=== PATIENT | female | born 1935 | race Caucasian/White ===

== ENCOUNTER 2021-08-16 17:34 | Emergency (ER) | payer MEDICARE, BC ==
[2021-08-16] MEDS ORDERED: Fluorescein 1 MG Ophth Strip EYEBOTH ONE (18:24)
[2021-08-16] MEDS ORDERED: Proparacaine 0.5% Ophth Soln 15 ML Bottle EYEBOTH ONE (18:24)
--- NOTE | 2021-08-16 18:27 | EDM.PDOC ---
ED HPI GENERAL MEDICAL PROBLEM - General Chief Complaint: Eye Problems Stated Complaint: WRONG MEDICINE IN EYES Time Seen by Provider: 08/16/21 18:10 Source of Information: Reports: Patient History Limitations: Reports: No Limitations - History of Present Illness INITIAL COMMENTS - FREE TEXT/NARRATIVE: 85-year-old female presents the emergency department today after putting the wrong medication in her eyes at about 6 AM this morning. Patient states that she was supposed to put Towner eyedrops in her eyes when she accidentally put psoriasis cream in her eyes. She states that she did wash her eyes out well this morning and then this evening used an eyewash cream as she states that they began burning more this evening. She states that they did call poison control and directed her to come to the emergency department as the medication could scratch the cornea. Patient also requesting prednisone for psoriasis exacerbation. - Related Data Allergies Allergy/AdvReac Type Severity Reaction Status Date / Time No Known Allergies Allergy Verified 08/16/21 18:16 Home Meds: Home Meds Omeprazole 20 mg PO ASDIRECTED 08/16/21 [History] Potassium Chloride 10 meq PO DAILY 08/16/21 [History] Pravastatin [Pravachol] 5 mg PO DAILY 08/16/21 [History] predniSONE [Prednisone] 20 mg PO ASDIRECTED #15 tablet 08/16/21 [Rx] ED ROS GENERAL - Review of Systems Review Of Systems: Comprehensive ROS is negative, except as noted in HPI. ED EXAM GENERAL W FULL EYE - Physical Exam Exam: See Below Exam Limited By: No Limitations General Appearance: Alert, WD/WN, No Apparent Distress Eye Exam: Bilateral Eye: EOMI, PERRL Eyelids: Bilateral: Normal Appearance Conjunctiva & Sclera: Bilateral: Normal Appearance Cornea Exam: Bilateral: Normal Appearance, Examined with Flourescein Extraocular Movements: Bilateral: Intact Pupils: Normal Accommodation Pupillary Size: Bilateral: 3 mm Pupillary Reaction: Bilateral: Brisk Ears: Normal External Exam, Hearing Grossly Normal Nose: Normal Inspection Throat/Mouth: Normal Inspection, Normal Lips, Normal Voice, No Airway Compromise Head: Atraumatic, Normocephalic Neck: Normal Inspection, Supple Respiratory/Chest: No Respiratory Distress, No Accessory Muscle Use Cardiovascular: Normal Peripheral Pulses, Regular Rate, Rhythm GI/Abdominal: No Distention (Male) Exam: Deferred (Female) Exam: Deferred Rectal (Males) Exam: Deferred Rectal (Female) Exam: Deferred Back Exam: Other (Patient does have scattered areas of psoriasis noted however entire back) Extremities: Other (Areas of psoriasis noted to bilateral upper inner arms.) Neurological: Alert, Oriented, Normal Cognition Psychiatric: Normal Affect, Normal Mood Skin Exam: Warm, Dry, Intact, Normal Color, Rash (Psoriasis noted to abdomen, back and bilateral upper inner arms) Lymphatic: No Adenopathy Course - Vital Signs Text/Narrative:: As stated above, patient presents with burning noted to her eyes bilaterally due to the fact that she accidentally put psoriasis cream into her eyes this morning. Patient visual exam that was completed by nursing staff is 20/100 bilaterally. Patient does have macular degeneration. Exam was completed without the patient wearing her glasses. Exam that was completed by myself. I did use 1 drop of proparacaine in each eye and then applied fluorescein to her eyes bilaterally. Both eyes were inspected and I do not appreciate any corneal abrasion on either eye. She will be instructed to use eyewashes for comfort. 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 Last Recorded V/S: Last Vital Signs Temp 97.9 F 08/16/21 18:27 Pulse 83 08/16/21 18:27 Resp 20 08/16/21 18:27 BP 133/64 08/16/21 18:27 Pulse Ox 100 08/16/21 18:27 - Orders/Labs/Meds Meds: Medications Discontinued Medications Generic Name Dose Route Start Last Admin Trade Name Tuanq PRN Reason Stop Dose Admin Fluorescein Sodium 1 mg 08/16/21 18:24 08/16/21 18:37 Fluorescein 1 Mg Ophth Strip EYEBOTH 08/16/21 18:25 1 mg ONETIME ONE Administration Proparacaine HCl 1 ml 08/16/21 18:24 08/16/21 18:37 Proparacaine 0.5% Ophth Soln 15 Ml Bottle EYEBOTH 08/16/21 18:25 1 ml ONETIME ONE Administration Departure - Departure Time of Disposition: 18:58 Disposition: Home, Self-Care 01 Condition: Good Clinical Impression: Irritation of both eyes, Psoriasis (a type of skin inflammation) - Discharge Information Prescriptions: predniSONE [Prednisone] 20 mg PO ASDIRECTED #15 tablet Instructions: Psoriasis, [id number] Referrals: Evy Martin MD [Primary Care Provider] - Forms: ED Department Discharge Additional Instructions: You were seen in the emergency department this evening after accidentally placing psoriasis cream in your eyes this morning. Exam was completed and you do not appear to have an abrasion to your cornea. Recommend that if you are still having irritation first thing Thursday to follow-up with your preschool principal for reevaluation. I have sent prescription to [facility] in [place] for prednisone to treat your psoriasis. You will need to take 20 mg twice daily for 5 days and then 20 mg daily for another 5 days. Please be sure to follow-up with Dr. Martin in clinic once you have completed this course of prednisone treatment. Should your condition worsen or change, do not hesitate returning to the emergency department. Sepsis Event Note (ED) - Focused Exam Vital Signs: Vital Signs Temp Pulse Resp BP Pulse Ox 08/16/21 18:27 97.9 F 83 20 133/64 100
== END 2021-08-16 19:28 | disposition home or self-care (01) ==
LOC: JD.ED 17:34
DX: L40.9 Psoriasis, unspecified (principal); H57.89 Other specified disorders of eye and adnexa
CPT/HCPCS: 99282

== ENCOUNTER 2021-12-13 12:00 | Emergency (ER) | payer MEDICARE, BC ==
[2021-12-13] MEDS ORDERED: Morphine 4 MG/ML Syringe IVPUSH ONE ×2 (12:39→13:51)
== END 2021-12-13 18:16 ==
LOC: JD.ED 12:00
DX: S72.001A Fracture of unspecified part of neck of right femur, initial encounter for closed fracture (principal); Z79.899 Other long term (current) drug therapy; Z20.822 Contact with and (suspected) exposure to COVID-19; W06.XXXA Fall from bed, initial encounter
CPT/HCPCS: 36415; 73502; 80053; 85025; 85610; 96374; 96376; 99284; J2270; U0002

== ENCOUNTER 2023-03-07 19:53 | Emergency (ER) | payer MEDICARE, BC ==
[2023-03-07] MEDS ORDERED: predniSONE 20 MG Tab PO STA (21:07)
== END 2023-03-07 21:45 | disposition home or self-care (01) ==
LOC: JD.ED 19:53
DX: M10.9 Gout, unspecified (principal); J45.909 Unspecified asthma, uncomplicated; N18.9 Chronic kidney disease, unspecified
CPT/HCPCS: 99283; J7512

== ENCOUNTER 2024-01-15 16:38 | Emergency (ER) | payer MEDICARE, BC ==
[2024-01-15 21:11] LABS: BASOPHILS PERCENT AUTO 0.5 % (0.0-1.0); EOSINOPHILS ABSOLUTE AUTO 0.2 K/mm3 (0.0-0.4); HEMATOCRIT 33.1 % (37.0-47.0); HEMOGLOBIN 10.5 gm/dl (12.0-16.0); IMMATURE GRAN ABSOLUTE AUTO 0.02 K/mm3 (0.00-0.05); IMMATURE GRAN PERCENT AUTO 0.3 % (0.0-0.4); LYMPHOCYTES ABSOLUTE AUTO 1.4 K/mm3 (1.0-4.8); LYMPHOCYTES PERCENT AUTO 22.6 % (24.0-44.0); MEAN CORPUSCULAR HEMOGLOBIN 31.4 pg (28.0-32.0); MEAN CORPUSCULAR HGB CONC 31.7 g/dl (32.0-36.0); MEAN CORPUSCULAR VOLUME 99.1 fl (83.0-99.0); MEAN PLATELET VOLUME 9.5 fl (9.4-12.3); MONOCYTES ABSOLUTE AUTO 0.6 K/mm3 (0.0-0.8); MONOCYTES PERCENT AUTO 9.4 % (0.0-8.0); NEUTROPHILS ABSOLUTE AUTO 3.8 K/mm3 (1.8-7.7); NEUTROPHILS PERCENT AUTO 63.2 % (41.0-71.0); PLATELET COUNT,PLT 256 K/mm3 (150-400); RED BLOOD CELL COUNT 3.34 M/mm3 (4.10-5.30); WHITE BLOOD CELL COUNT,WBC 5.98 K/mm3 (3.9-11.3)
[2024-01-15 21:34] LABS: A/G RATIO 0.8 (1-2); ALBUMIN 3.2 g/dl (3.4-5.0); ANION GAP 14.4 (5-15); BILIRUBIN TOTAL 0.6 mg/dL (0.2-1.0); CREATININE 1.4 mg/dL (0.55-1.02); POTASSIUM,K 3.4 mEq/L (3.5-5.1); PROTEIN TOTAL,TP 7.2 g/dl (6.4-8.2); URIC ACID 6.1 mg/dL (2.6-6.0)
[2024-01-15] MEDS: Cephalexin 500 MG Cap PO ONE (23:12)
[2024-01-15] MEDS: Colchicine 0.6 MG Tab PO ONE ×2 (23:12→23:13)
== END 2024-01-15 23:20 | disposition home or self-care (01) ==
LOC: JD.ED 16:38
DX: L03.116 Cellulitis of left lower limb (principal); M10.00 Idiopathic gout, unspecified site; I48.91 Unspecified atrial fibrillation; J45.909 Unspecified asthma, uncomplicated; K21.9 Gastro-esophageal reflux disease without esophagitis; N18.9 Chronic kidney disease, unspecified; Z86.19 Personal history of other infectious and parasitic diseases; Z91.048 Other nonmedicinal substance allergy status
CPT/HCPCS: 36415; 73502-26-LT; 73502-26-RT; 73502-LT; 73502-RT; 73610-26-LT; 73610-LT; 80053; 84550; 85025; 85652; 93005; 93010; 93971-26-LT; 93971-LT; 99284; A9270-GY

== ENCOUNTER 2024-06-10 19:44 | Emergency (ER) | payer MEDICARE, BC ==
[2024-06-10 20:39] LABS: BASOPHILS PERCENT AUTO 0.4 % (0.0-1.0); EOSINOPHILS ABSOLUTE AUTO 0.2 K/mm3 (0.0-0.4); EOSINOPHILS PERCENT AUTO 3.3 % (0.0-6.0); HEMATOCRIT 30.1 % (37.0-47.0); HEMOGLOBIN 9.6 gm/dl (12.0-16.0); IMMATURE GRAN ABSOLUTE AUTO 0.02 K/mm3 (0.00-0.05); IMMATURE GRAN PERCENT AUTO 0.3 % (0.0-0.4); LYMPHOCYTES ABSOLUTE AUTO 1.4 K/mm3 (1.0-4.8); LYMPHOCYTES PERCENT AUTO 19.4 % (24.0-44.0); MEAN CORPUSCULAR HEMOGLOBIN 31.4 pg (28.0-32.0); MEAN CORPUSCULAR HGB CONC 31.9 g/dl (32.0-36.0); MEAN CORPUSCULAR VOLUME 98.4 fl (83.0-99.0); MEAN PLATELET VOLUME 9.6 fl (9.4-12.3); MONOCYTES ABSOLUTE AUTO 0.6 K/mm3 (0.0-0.8); MONOCYTES PERCENT AUTO 8.6 % (0.0-8.0); NEUTROPHILS ABSOLUTE AUTO 4.9 K/mm3 (1.8-7.7); PLATELET COUNT,PLT 230 K/mm3 (150-400); RED BLOOD CELL COUNT 3.06 M/mm3 (4.10-5.30); WHITE BLOOD CELL COUNT,WBC 7.23 K/mm3 (3.9-11.3)
[2024-06-10] MEDS: Sodium Chloride 0.9% 10 ML Syringe FLUSH PRN (20:42)
[2024-06-10] MEDS: Sodium Chloride 0.9% 500 ML IV ONE (20:42)
[2024-06-10 20:54] LABS: APPEARANCE,URINE CLEAR (Clear); BILIRUBIN,URINE NEGATIVE (Negative); COLOR,URINE YELLOW (Yellow); GLUCOSE,URINE NEGATIVE (Negative); KETONES,URINE NEGATIVE (Negative); LEUKOCYTE ESTERASE,URINE TRACE (Negative); NITRITE,URINE NEGATIVE (Negative); OCCULT BLOOD,URINE 2+ (Negative); PROTEIN,URINE 1+ (Negative); UROBILINOGEN,URINE 0.2 (0.2-1.0)
[2024-06-10 21:03] LABS: A/G RATIO 0.7 (1-2); ALBUMIN 2.9 g/dl (3.4-5.0); ANION GAP 18.1 (5-15); BILIRUBIN TOTAL 0.5 mg/dL (0.2-1.0); BUN/CREATININE RATIO 8.5 (14-18); CALCIUM 8.9 mg/dL (8.5-10.1); CREATININE 4.7 mg/dL (0.55-1.02); EST CRCL DRUG DOSING (CG) 8.04 mL/min; POTASSIUM,K 4.1 mEq/L (3.5-5.1); PROTEIN TOTAL,TP 7.1 g/dl (6.4-8.2)
[2024-06-10 21:11] LABS: BACTERIA,URINE FEW /hpf (FEW); MUCUS,URINE FEW /hpf (FEW)
[2024-06-10 21:25] LABS: INR 2.33; PROTHROMBIN TIME 23.4 SECONDS (9.7-12.0)
== END 2024-06-11 00:40 ==
LOC: JD.ED 19:44
DX: N19 Unspecified kidney failure (principal); D64.9 Anemia, unspecified; R82.90 Unspecified abnormal findings in urine; Z91.048 Other nonmedicinal substance allergy status; Z79.01 Long term (current) use of anticoagulants; Z79.899 Other long term (current) drug therapy; Z90.49 Acquired absence of other specified parts of digestive tract; Z90.710 Acquired absence of both cervix and uterus
CPT/HCPCS: 36415; 80053; 81001; 85025; 85610; 87086; 96360; 99284; J3490; J7030

== ENCOUNTER 2024-09-11 09:32 | Inpatient (IN) | payer MEDICARE, BC ==
[2024-09-11] MEDS ORDERED: Sodium Chloride 0.9% 10 ML Syringe FLUSH PRN (09:52)
[2024-09-11] MEDS: Diltiazem 25 MG/5 ML SDV IVPUSH ONE (10:02)
[2024-09-11] MEDS: Sodium Chloride 0.9% 1,000 ML IV ONE ×2 (10:03→13:47)
[2024-09-11] MEDS: Diltiazem 125 MG in Sodium Chloride 0.9% 100 ML IV SCH (10:24)
[2024-09-11 10:38] LABS: HEMATOCRIT 22.7 % (37.0-47.0); MEAN CORPUSCULAR HEMOGLOBIN 32.9 pg (28.0-32.0); MEAN CORPUSCULAR HGB CONC 31.3 g/dl (32.0-36.0); MEAN CORPUSCULAR VOLUME 105.1 fl (83.0-99.0); MEAN PLATELET VOLUME 10.6 fl (9.4-12.3); PLATELET COUNT,PLT 202 K/mm3 (150-400); RED BLOOD CELL COUNT 2.16 M/mm3 (4.10-5.30); WHITE BLOOD CELL COUNT,WBC 8.36 K/mm3 (3.9-11.3)
[2024-09-11 10:48] LABS: HEMOGLOBIN 7.1 gm/dl (12.0-16.0)
[2024-09-11 10:55] LABS: INR 2.03; PROTHROMBIN TIME 20.5 SECONDS (9.7-12.0)
[2024-09-11 11:00] LABS: LACTIC ACID 1.7 mmol/L (0.4-2.0)
[2024-09-11 11:01] LABS: A/G RATIO 0.6 (1-2); ALBUMIN 2.3 g/dl (3.4-5.0); ANION GAP 16.4 (5-15); BILIRUBIN TOTAL 0.6 mg/dL (0.2-1.0); BUN/CREATININE RATIO 13.7 (14-18); C-REACTIVE PROTEIN 13.86 mg/dL (<0.30); CALCIUM 7.8 mg/dL (8.5-10.1); CREATININE 3.8 mg/dL (0.55-1.02); EST CRCL DRUG DOSING (CG) 10.14 mL/min; POTASSIUM,K 3.4 mEq/L (3.5-5.1); PROTEIN TOTAL,TP 5.9 g/dl (6.4-8.2)
[2024-09-11 11:26] LABS: APPEARANCE,URINE CLEAR (Clear); BILIRUBIN,URINE NEGATIVE (Negative); COLOR,URINE YELLOW (Yellow); GLUCOSE,URINE NEGATIVE (Negative); KETONES,URINE NEGATIVE (Negative); LEUKOCYTE ESTERASE,URINE NEGATIVE (Negative); NITRITE,URINE NEGATIVE (Negative); OCCULT BLOOD,URINE NEGATIVE (Negative); PROTEIN,URINE 3+ (Negative); UROBILINOGEN,URINE 0.2 (0.2-1.0)
[2024-09-11 11:30] LABS: BAND PERCENT MAN 1 % (0-10); BASOPHILS PERCENT MAN 0 (0.1-1.2); EOSINOPHILS PERCENT MAN 3 % (0.7-5.8); LYMPHOCYTES % ATYPICAL MANUAL 0 %; LYMPHOCYTES PERCENT MAN 7 % (20-40); MONOCYTES PERCENT MAN 3 % (2-10)
[2024-09-11 11:33] LABS: ANISOCYTOSIS 2+ MODERATE; HYPOCHROMASIA 1+ SLIGHT; PLATELET COUNT ESTIMATE ADEQUATE; SPHEROCYTES 1+ SLIGHT
[2024-09-11 11:57] LABS: AMORPHOUS SEDIMENT,URINE FEW /hpf (NOT SEEN); BACTERIA,URINE MODERATE /hpf (FEW); MUCUS,URINE FEW /hpf (FEW); RBC,URINE 0-5 /hpf (0-5); SQUAMOUS EPITHELIAL CELLS,UR 0-5 /hpf (0-5); WBC,URINE 0-5 /hpf (0-5)
[2024-09-11] MEDS ORDERED: cefTRIAXone 500 MG Vial IVPUSH ONE (13:30)
[2024-09-11] MEDS: cefTRIAXone 1 GM Vial IVPUSH ONE (13:51)
[2024-09-11] MEDS ORDERED: oxyCODONE 5 MG Tab PO PRN (17:45)
[2024-09-11] MEDS ORDERED: Naloxone 0.4 MG/ML SDV IVPUSH PRN (17:45)
[2024-09-11] MEDS ORDERED: LORazepam 2 MG/ML SDV IV PRN (17:45)
[2024-09-11] MEDS ORDERED: Morphine 2 MG/ML SYRINGE IVPUSH PRN (17:45)
[2024-09-11] MEDS ORDERED: Acetaminophen 325 MG Tab PO PRN (17:45)
[2024-09-11] MEDS: Potassium Chloride 20 MEQ Tab.ER PO ONE (18:34)
[2024-09-11] MEDS: Melatonin 3 MG Tab PO PRN (20:11)
[2024-09-11] MEDS: Fluticasone NASAL Spray 16 GM Bottle NAS SCH (20:11)
[2024-09-11] MEDS: Famotidine 20 MG/2 ML SDV IVPUSH SCH (20:11)
[2024-09-11] MEDS: Sodium Bicarbonate 650 MG Tab PO SCH (20:11)
[2024-09-11] MEDS: Warfarin 2.5 MG Tab PO ONE (20:11)
[2024-09-11] MEDS: Metoprolol Tartrate 25 MG Tab PO SCH (23:14)
[2024-09-12] MEDS: Sodium Chloride 0.9% 500 ML IV ONE (03:50)
[2024-09-12 05:58] LABS: BASOPHILS PERCENT AUTO 0.2 % (0.0-1.0); EOSINOPHILS ABSOLUTE AUTO 0.3 K/mm3 (0.0-0.4); EOSINOPHILS PERCENT AUTO 5.2 % (0.0-6.0); HEMATOCRIT 29.6 % (37.0-47.0); IMMATURE GRAN ABSOLUTE AUTO 0.04 K/mm3 (0.00-0.05); IMMATURE GRAN PERCENT AUTO 0.8 % (0.0-0.4); LYMPHOCYTES ABSOLUTE AUTO 0.3 K/mm3 (1.0-4.8); LYMPHOCYTES PERCENT AUTO 6.5 % (24.0-44.0); MEAN CORPUSCULAR HEMOGLOBIN 32.4 pg (28.0-32.0); MEAN CORPUSCULAR HGB CONC 31.4 g/dl (32.0-36.0); MEAN CORPUSCULAR VOLUME 103.1 fl (83.0-99.0); MEAN PLATELET VOLUME 11.2 fl (9.4-12.3); MONOCYTES ABSOLUTE AUTO 0.3 K/mm3 (0.0-0.8); MONOCYTES PERCENT AUTO 5.5 % (0.0-8.0); NEUTROPHILS ABSOLUTE AUTO 4.3 K/mm3 (1.8-7.7); NEUTROPHILS PERCENT AUTO 81.8 % (41.0-71.0); PLATELET COUNT,PLT 149 K/mm3 (150-400); RED BLOOD CELL COUNT 2.87 M/mm3 (4.10-5.30); WHITE BLOOD CELL COUNT,WBC 5.23 K/mm3 (3.9-11.3)
[2024-09-12 06:08] LABS: HEMOGLOBIN 9.3 gm/dl (12.0-16.0)
[2024-09-12 06:19] LABS: INR 1.89; PROTHROMBIN TIME 19.2 SECONDS (9.7-12.0)
[2024-09-12 07:00] LABS: A/G RATIO 0.6 (1-2); ANION GAP 14.8 (5-15); BILIRUBIN TOTAL 0.6 mg/dL (0.2-1.0); BUN/CREATININE RATIO 13.8 (14-18); CALCIUM 7.7 mg/dL (8.5-10.1); CREATININE 3.7 mg/dL (0.55-1.02); EST CRCL DRUG DOSING (CG) 10.81 mL/min; MAGNESIUM 1.9 mg/dL (1.8-2.4); PHOSPHORUS 2.9 mg/dL (2.6-4.7); POTASSIUM,K 3.8 mEq/L (3.5-5.1); PROTEIN TOTAL,TP 5.3 g/dl (6.4-8.2)
[2024-09-12] MEDS ORDERED: Fluticasone/Umeclidin/Vilanter [Trelegy Ellipta 100-62.5- PO SCH (09:00)
[2024-09-12] MEDS: Sennosides/Docusate Sodium 50-8.6 MG Tab PO PRN (09:05)
[2024-09-12] MEDS: Warfarin 2.5 MG Tab PO ONE (17:16)
[2024-09-12] MEDS: Warfarin 5 MG Tab PO SCH (17:34)
== END 2024-09-12 18:13 | disposition home or self-care (01) | DRG 309 ==
LOC: JD.ED 09:32 → JD.ICU 15:01
PROVIDERS: ADMIT Student in an Organized Health Care Education/Training Program; ATTEND Student in an Organized Health Care Education/Training Program
PROC: 30233N1 Transfusion of Nonautologous Red Blood Cells into Peripheral Vein, Percutaneous Approach (ICD-10-PCS; principal; 2024-09-11)
DX: R53.1 Weakness (principal); I48.91 Unspecified atrial fibrillation; C82.90 Follicular lymphoma, unspecified, unspecified site; D84.9 Immunodeficiency, unspecified; D64.9 Anemia, unspecified; N39.0 Urinary tract infection, site not specified; C85.90 Non-Hodgkin lymphoma, unspecified, unspecified site; J45.909 Unspecified asthma, uncomplicated; Z91.048 Other nonmedicinal substance allergy status; N17.9 Acute kidney failure, unspecified; K21.9 Gastro-esophageal reflux disease without esophagitis; N18.9 Chronic kidney disease, unspecified; M19.90 Unspecified osteoarthritis, unspecified site; M81.0 Age-related osteoporosis without current pathological fracture; Z96.649 Presence of unspecified artificial hip joint; D63.1 Anemia in chronic kidney disease; E86.0 Dehydration; J44.9 Chronic obstructive pulmonary disease, unspecified; R79.89 Other specified abnormal findings of blood chemistry; I95.9 Hypotension, unspecified; E86.1 Hypovolemia; I08.3 Combined rheumatic disorders of mitral, aortic and tricuspid valves; D64.81 Anemia due to antineoplastic chemotherapy; T45.1X5A Adverse effect of antineoplastic and immunosuppressive drugs, initial encounter; Z79.01 Long term (current) use of anticoagulants; Z79.899 Other long term (current) drug therapy; Z90.89 Acquired absence of other organs; Z98.49 Cataract extraction status, unspecified eye; Z98.890 Other specified postprocedural states; Z90.49 Acquired absence of other specified parts of digestive tract; Z90.710 Acquired absence of both cervix and uterus
CPT/HCPCS: 36415; 36430; 70450; 70450-26; 71045; 71045-26; 80053; 81001; 82607; 82746; 83605; 83690; 83735; 84100; 84145; 84484; 85007; 85025; 85027; 85610; 86140; 86850; 86900; 86901; 86922; 87040; 87428-QW; 93005; 93306; A9270-GY; C1758; J0696; J3490; J7030; P9016